=== PATIENT | female | born 1985 | race Caucasian/White ===

== ENCOUNTER 2017-04-02 22:35 | Emergency (ER) | payer MEDICAID ==
[~2017-04-02] VITALS: Ht 170.2 cm; Wt 63.5 kg
[~2017-04-02 22:35] MED LIST: SPIR25TA4 PO
[2017-04-02] MEDS: LIDOCAINE 1%-EPI 1:100,000 20 ML VIAL TP ONE ×2 (23:55→23:57)
[2017-04-03 00:32] VITALS: BP 132/74
--- NOTE | 2017-04-03 00:40 | NUR ---
Patient discharged to home in stable conditon. Written and verbal after care instructions given. Patient verbalizes understanding of instructions.
== END 2017-04-03 00:54 | disposition home or self-care (01) ==
LOC: ER 22:39
DX: K13.0 Diseases of lips (principal); F17.200 Nicotine dependence, unspecified, uncomplicated; F19.10 Other psychoactive substance abuse, uncomplicated
CPT/HCPCS: A4663; J3490

== ENCOUNTER 2017-07-17 03:35 | Emergency (ER) | payer MEDICAID ==
[~2017-07-17] VITALS: Ht 170.2 cm; Wt 61.2 kg
--- NOTE | 2017-07-17 04:17 | NUR ---
DR LEUNG INTO EVAL PATIENT
--- NOTE | 2017-07-17 04:40 | NUR ---
Left arm up elevated on pillow.
--- NOTE | 2017-07-17 05:00 | NUR ---
Sleeping at periodic intervals; friend at bedside.
[2017-07-17 05:06] LABS: BASOPHILS # (AUTO) 0.1 K/uL (0.0-8.0); BASOPHILS % (AUTO) 0.8 % (0.0-2.0); EOSINOPHILS # (AUTO) 0.2 K/uL (0.0-0.7); HEMATOCRIT 36.1 % (37-47); HEMOGLOBIN 11.6 G/DL (12.0-16.0); LYMPHOCYTES # (AUTO) 3.7 K/UL (0.8-4.8); LYMPHOCYTES % (AUTO) 51.5 % (20.5-51.5); MEAN CORPUSCULAR HEMOGLOBIN 28.3 UUG (27.0-31.0); MEAN CORPUSCULAR HGB CONC 32 g/dL (32.0-37.0); MEAN CORPUSCULAR VOLUME 87.9 FL (81.0-99.0); MONOCYTES # (AUTO) 0.6 K/UL (0.1-1.30); MONOCYTES % (AUTO) 8.5 % (0.0-11.0); NEUTROPHILS # (AUTO) 2.6 K/UL (1.8-8.9); NEUTROPHILS % (AUTO) 36.2 % (38.5-71.5); PLATELET COUNT (AUTO) 453 K/UL (150-450); RED BLOOD CELL COUNT(AUTO) 4.11 MIL/UL (4.2-5.4); WHITE BLOOD COUNT (AUTO) 7.2 K/UL (4.0-11.2)
[2017-07-17 05:11] LABS: CREATININE 0.7 mg/dL (0.6-1.3); POTASSIUM 3.7 mmol/L (3.5-5.1)
[2017-07-17 05:17] LABS: BILIRUBIN,DIRECT 0.1 mg/dL (0.0-0.2); BILIRUBIN,TOTAL 0.2 mg/dL (0.2-1.0); TOTAL PROTEIN, SERUM 7.2 g/dL (6.4-8.2)
--- NOTE | 2017-07-17 06:00 | NUR ---
Patient discharged to home in stable conditon accompanied by friend. Written and verbal after care instructions given. Patient verbalizes understanding of instructions.
== END 2017-07-17 06:00 | disposition home or self-care (01) ==
LOC: ER 03:38
DX: L03.114 Cellulitis of left upper limb (principal); F11.10 Opioid abuse, uncomplicated; F17.200 Nicotine dependence, unspecified, uncomplicated
CPT/HCPCS: 36415; 70030-TC; 73060; 83605; 85025; 87040; A4663

== ENCOUNTER 2018-02-06 00:07 | Emergency (ER) | payer MEDICAID ==
[~2018-02-06] VITALS: Ht 172.7 cm; Wt 59.0 kg
--- NOTE | 2018-02-06 00:40 | NUR ---
Dr. Rollins at bedside for MSE.
[2018-02-06] MEDS ORDERED: ONDANSETRON ODT 4 MG TAB.RAPDIS SL ONE (00:45)
[2018-02-06] MEDS ORDERED: SULFAMETH/TRIMETH 800/160 MG TABLET PO ONE (00:45)
[2018-02-06] MEDS ORDERED: CEFTRIAXONE 500 MG VIAL IM ONE (00:45)
[2018-02-06] MEDS ORDERED: AZITHROMYCIN 250 MG TABLET PO ONE (00:45)
[2018-02-06] MEDS ORDERED: CEFTRIAXONE 500 MG VIAL ONE (00:47)
[2018-02-06] MEDS ORDERED: SULFAMETH/TRIMETH 800/160 MG TABLET ONE (00:48)
[2018-02-06] MEDS ORDERED: ONDANSETRON ODT 4 MG TAB.RAPDIS ONE (00:49)
[2018-02-06] MEDS ORDERED: AZITHROMYCIN 250 MG TABLET ONE (00:49)
[2018-02-06 01:00] LABS: *URINE HCG, QUAL NEGATIVE (NEGATIVE)
[2018-02-06 01:01] LABS: *BILIRUBIN,URIN 1+ (NEGATIVE); *BLOOD, URINE Trace-lysed (NEGATIVE); *CLARITY,URINE SLIGHTLY CLOUDY (CLEAR); *COLOR,URINE DARK YELLOW (YELLOW); *KETONES,URINE TRACE (NEGATIVE); *PROTEIN,URINE 1+ (NEGATIVE); *UROBILINOGEN,URINE 0.2 E.U./dl (NORMAL); LEUKOCYTE ESTERASE ,URINE TRACE (NEGATIVE); NITRITE, URINE NEGATIVE (NEGATIVE); PH,URINE 5.5 (5.0-8.0); UGLUCOSE NEGATIVE (NEGATIVE)
[2018-02-06 01:15] LABS: BACTERIA,URINE FEW /HPF (NONE SEEN); SQUAMOUS EPITHELIAL CELL,UR MODERATE /HPF (NONE SEEN); WBC,URINE 20-50 /HPF (0-3)
[2018-02-06 01:56] VITALS: BP 115/78
--- NOTE | 2018-02-06 02:09 | NUR ---
Patient discharged to home in stable conditon with friend taking pTIENT HOME. Written and verbal after care instructions given. Patient verbalizes understanding of instructions. WALKED OUT OF ER WITH STEADY GAIT. NO DISTRESS NOTED
[2018-02-08 09:07] LABS: *GC NAA Negative (Negative); *TRIC.VAG. NAA Negative (Negative)
== END 2018-02-06 02:10 | disposition home or self-care (01) ==
LOC: ER 00:11
DX: L03.115 Cellulitis of right lower limb (principal); N39.0 Urinary tract infection, site not specified; F11.10 Opioid abuse, uncomplicated; F15.10 Other stimulant abuse, uncomplicated; F17.210 Nicotine dependence, cigarettes, uncomplicated
CPT/HCPCS: 84703; 87491; A4663; J0696; J3490; Q0144; Q0162

== ENCOUNTER 2018-07-11 13:21 | Emergency (ER) | payer MEDICAID, OTHER ==
[~2018-07-11] VITALS: Ht 170.2 cm; Wt 59.0 kg
--- NOTE | 2018-07-11 13:42 | NUR ---
PT IS IN ROOM #2B. DR PEREIRA EVALUATED THE PT.
[2018-07-11 14:07] LABS: *URINE HCG, QUAL NEGATIVE (NEGATIVE)
--- NOTE | 2018-07-11 14:25 | NUR ---
PT WAS D/C TO HOME. D/C INSTRUCTIONS GIVEN TO THE PT.
[2018-07-11 14:26] VITALS: BP 125/76
== END 2018-07-11 14:27 | disposition home or self-care (01) ==
LOC: ER 13:21
DX: L02.415 Cutaneous abscess of right lower limb (principal); F17.200 Nicotine dependence, unspecified, uncomplicated; F11.10 Opioid abuse, uncomplicated; F12.10 Cannabis abuse, uncomplicated
CPT/HCPCS: 84703; A4663

== ENCOUNTER 2018-08-02 16:33 | Emergency (ER) | payer OTHER ==
[~2018-08-02] VITALS: Ht 170.2 cm; Wt 59.0 kg
[2018-08-02] MEDS ORDERED: CEPHALEXIN MONOHYDRATE 500 MG CAPSULE ONE (16:56)
[2018-08-02] MEDS ORDERED: SULFAMETH/TRIMETH 800/160 MG TABLET ONE (16:56)
[2018-08-02] MEDS ORDERED: CEPHALEXIN MONOHYDRATE 500 MG CAPSULE PO ONE (17:00)
[2018-08-02] MEDS ORDERED: SULFAMETH/TRIMETH 800/160 MG TABLET PO ONE (17:00)
--- NOTE | 2018-08-02 17:34 | NUR ---
Patient discharged to home in stable conditon. Written and verbal after care instructions given. Patient verbalizes understanding of instructions.
== END 2018-08-02 17:36 | disposition home or self-care (01) ==
LOC: ER 16:35
DX: L03.116 Cellulitis of left lower limb (principal); F11.10 Opioid abuse, uncomplicated; F17.200 Nicotine dependence, unspecified, uncomplicated; F15.10 Other stimulant abuse, uncomplicated
CPT/HCPCS: 73630; A4663

== ENCOUNTER 2020-10-24 18:53 | Emergency (ER) | payer MEDICAID, OTHER ==
[~2020-10-24] VITALS: Ht 172.7 cm; Wt 65.8 kg
[2020-10-24 19:28] LABS: *BILIRUBIN,URIN NEGATIVE (NEGATIVE); *BLOOD, URINE NEGATIVE (NEGATIVE); *CLARITY,URINE SLIGHTLY CLOUDY (CLEAR); *COLOR,URINE YELLOW (YELLOW); *KETONES,URINE NEGATIVE (NEGATIVE); *UROBILINOGEN,URINE 0.2 E.U./dl (NORMAL); LEUKOCYTE ESTERASE ,URINE TRACE (NEGATIVE); NITRITE, URINE NEGATIVE (NEGATIVE); PH,URINE 5.5 (5.0-8.0); UGLUCOSE NEGATIVE (NEGATIVE)
[2020-10-24 19:29] LABS: *URINE HCG, QUAL NEGATIVE (NEGATIVE)
[2020-10-24] MEDS ORDERED: AZITHROMYCIN 250 MG TABLET PO ONE (19:45)
[2020-10-24] MEDS ORDERED: CEFTRIAXONE 500 MG VIAL IM ONE (19:45)
[2020-10-24] MEDS ORDERED: LIDOCAINE HCL 1% 20 ML VIAL ONE (19:53)
[2020-10-24] MEDS ORDERED: CEFTRIAXONE 500 MG VIAL ONE (19:53)
[2020-10-24] MEDS ORDERED: AZITHROMYCIN 250 MG TABLET ONE (19:53)
[2020-10-24 19:58] VITALS: BP 115/77
--- NOTE | 2020-10-24 19:58 | NUR ---
Patient discharged to home in stable condition. Written and verbal after care instructions given. Patient verbalizes understanding of instructions. Stressed follow up or return to ER for worsening s/s.
[2020-10-24 21:46] LABS: BACTERIA,URINE FEW /HPF (NONE SEEN); MUCUS,URINE FEW /LPF (0-FEW); RBC,URINE 0-3 /HPF (0-3); SQUAMOUS EPITHELIAL CELL,UR FEW /HPF (NONE SEEN)
== END 2020-10-24 19:59 | disposition home or self-care (01) ==
LOC: ER 18:53
DX: N76.0 Acute vaginitis (principal); Z20.2 Contact with and (suspected) exposure to infections with a predominantly sexual mode of transmission; F17.200 Nicotine dependence, unspecified, uncomplicated
CPT/HCPCS: 81001; 84703; 87086; 87491; 96372; 99283; J0696; J3490; A4663; Q0144

== ENCOUNTER 2021-01-16 18:44 | Emergency (ER) | payer OTHER ==
[~2021-01-16] VITALS: Ht 172.7 cm; Wt 65.8 kg
== END 2021-01-16 19:20 | disposition home or self-care (01) ==
LOC: ER 18:44
DX: D17.1 Benign lipomatous neoplasm of skin and subcutaneous tissue of trunk (principal); M65.321 Trigger finger, right index finger; F17.210 Nicotine dependence, cigarettes, uncomplicated
CPT/HCPCS: A4663

== ENCOUNTER 2021-03-10 20:31 | Emergency (ER) | payer OTHER ==
[~2021-03-10] VITALS: Ht 172.7 cm; Wt 64.4 kg
--- NOTE | 2021-03-10 20:44 | NUR ---
Came in to ER ambulatory c/o earache/pressure/pain and decreased hearing x 2 weeks. To room 2A. Denies any ear discharges. Evaluated by Dr. Barkley.
[2021-03-10] MEDS ORDERED: AMOX-430 PO (21:10)
--- NOTE | 2021-03-10 21:24 | NUR ---
Discharged home in stable condition. Written and verbal instrcustions given; patient verbalized understanding of instructiions. A dose ofAugmentin 875mg given prior to DC as ordered by Dr. Barkley.
[2021-03-10 21:25] VITALS: BP 110/70
[2021-03-10] MEDS ORDERED: AMOXICILLIN-CLAVUL 875-125MG TABLET ONE (21:28)
[2021-03-10] MEDS ORDERED: AMOXICILLIN-CLAVUL 875-125MG TABLET PO ONE (21:30)
== END 2021-03-10 21:27 | disposition home or self-care (01) ==
LOC: ER 20:39
DX: H91.92 Unspecified hearing loss, left ear (principal); F17.210 Nicotine dependence, cigarettes, uncomplicated
CPT/HCPCS: A4663

== ENCOUNTER 2021-05-28 01:52 | Emergency (ER) | payer OTHER ==
[~2021-05-28] VITALS: Ht 170.2 cm; Wt 64.4 kg
[~2021-05-28 01:52] MED LIST changes: +AMOX-430 PO; -SPIR25TA4 PO
--- NOTE | 2021-05-28 02:23 | NUR ---
Dr. Malhotra at bedside for MSE.
--- NOTE | 2021-05-28 02:36 | NUR ---
Patient discharged to home in stable condition. Written and verbal after care instructions given. Patient verbalizes understanding of instructions. Stressed follow up or return to ER for worsening s/s. Patient out of ER with steady gait, no acute signs of distress, VSS, all belongings taken.
[2021-05-28 02:37] VITALS: BP 118/73
== END 2021-05-28 02:37 | disposition home or self-care (01) ==
LOC: ER 01:54
DX: N76.0 Acute vaginitis (principal); Z76.0 Encounter for issue of repeat prescription
CPT/HCPCS: A4663